=== PATIENT | male | born 1940 | race Caucasian/White ===

== ENCOUNTER 2016-08-25 15:20 | Emergency (ER) | payer MEDICARE, OTHER ==
[~2016-08-25] VITALS: Ht 175.3 cm; Wt 70.5 kg
[~2016-08-25 15:20] MED LIST: ASPI-825 PO; DOXA4TAB3 PO; ESOM40CA PO; NIAC1TBM PO; NITR0.4T27 SL; VITAMIN E
[2016-08-25] MEDS ORDERED: FENO145T PO (15:47)
[2016-08-25] MEDS ORDERED: ESCI5TAB PO (15:47)
[2016-08-25] MEDS ORDERED: DOXA4TAB2 PO (15:47)
[2016-08-25] MEDS ORDERED: ESOM40CA54 PO (15:47)
[2016-08-25] MEDS ORDERED: VIT D3 PO (15:47)
[2016-08-25] MEDS ORDERED: VIT E PO (15:47)
[2016-08-25] MEDS ORDERED: VIT B-12 PO (15:47)
[2016-08-25] MEDS ORDERED: SODIUM CHLORIDE 0.9% 1,000 ML IV ONE (16:45)
[2016-08-25] MEDS ORDERED: ACETAMINOPHEN 1000 MG/ISO-OSM 100 ML IV ONE (16:45)
[2016-08-25 16:49] LABS: BASOPHILS % (AUTO) 0.2 % (0.0-2.0); EOSINOPHILS % (AUTO) 0.7 % (1.0-6.0); HEMATOCRIT 52.3 % (41-53); HEMOGLOBIN 17.5 g/dL (13.5-17.5); LYMPHOCYTES # (AUTO) 2.2 K/uL (1.0-4.8); LYMPHOCYTES % (AUTO) 27.8 % (22.0-44.0); MEAN CORPUSCULAR HEMOGLOBIN 32.1 pg (26.0-34.0); MEAN CORPUSCULAR HGB CONC 33.5 G/dL (31.0-37.0); MEAN CORPUSCULAR VOLUME 96 fL (80-100); MONOCYTES # (AUTO) 0.6 K/uL (0.1-1.0); MONOCYTES % (AUTO) 7.7 % (2.0-9.0); NEUTROPHILS % (AUTO) 63.6 % (40.0-70.0); PLATELET COUNT (AUTO) 270 K/uL (150-450); RED BLOOD CELL COUNT(AUTO) 5.46 MIL/uL (4.50-5.90); RED CELL DISTRIBUTION WIDTH 14.2 % (11.5-14.5); WHITE BLOOD COUNT (AUTO) 7.9 K/uL (4.5-11.0)
[2016-08-25 16:56] LABS: ANION GAP 6 mmol/L (8-16); CALCIUM, TOTAL 9.5 mg/dL (8.8-10.5); CARBON DIOXIDE 29 mmol/L (22-29); CHLORIDE 103 mmol/L (98-107); CREATININE 0.85 mg/dL (0.60-1.30); GLOMERULAR FILTR. RATE CALC > 60 mL/min (>60); POTASSIUM 3.9 mmol/L (3.5-5.1); SODIUM SERUM 138 mmol/L (136-145); UREA NITROGEN, BLOOD 13 mg/dL (7-18)
[2016-08-25 17:02] LABS: ALANINE AMINOTRANSFERASE 38 U/L (12-78); ASPARTATE AMINOTRANSFERASE 26 U/L (15-37); BILIRUBIN,TOTAL 0.5 mg/dL (0.1-1.0); TOTAL PROTEIN, SERUM 7.5 g/dL (6.4-8.2)
[2016-08-25] MEDS ORDERED: SODIUM CHLORIDE 0.9% 100 ML ONE (17:03)
[2016-08-25] MEDS ORDERED: IOVERSOL 350 MG/ML 100 ML VIAL ONE (17:04)
[2016-08-25] MEDS ORDERED: KETOROLAC TROMETHAMINE 30 MG/ML VIAL IVP ONE (17:45)
[2016-08-25 17:48] LABS: APPEARANCE,URINE CLEAR (CLEAR); GLUCOSE, URINE (UA) NEGATIVE (NEGATIVE); KETONES,URINE NEGATIVE (NEGATIVE); LEUKOCYTE ESTERASE ,URINE NEGATIVE (NEGATIVE); OCCULT BLOOD,URINE NEGATIVE (NEGATIVE); PROTEIN,URINE NEGATIVE (NEGATIVE)
[2016-08-25 18:13] LABS: RBC,URINE 0-2 /HPF (0-2); WBC,URINE 0-2 /HPF (0-5)
[2016-08-25 20:18] VITALS: BP 122/74
== END 2016-08-25 20:26 | disposition home or self-care (01) ==
LOC: EMS 15:21
DX: R10.32 Left lower quadrant pain (principal); I11.9 Hypertensive heart disease without heart failure; E78.00 Pure hypercholesterolemia, unspecified
CPT/HCPCS: 36415; 75635; 80053; 81001; 83690; 85025; 96365; 96374; 99285; J0131; J7030; J7050; Q9967

== ENCOUNTER → 2024-04-05 | Outpatient (CLI) | payer MEDICARE, OTHER ==
[~2024-04-05] MED LIST changes: -ASPI-825 PO; -DOXA4TAB3 PO; +ESCI5TAB PO; -ESOM40CA PO; +ESOM40CA66 PO; +FENO145T PO; -NIAC1TBM PO; -NITR0.4T27 SL; +NITR0.4T50 SL; +VIT B-12 PO; +VIT D3 PO; +VIT E PO; -VITAMIN E; +[UNRECOGNIZED DRUG - CODE] PO
== END | disposition home or self-care (01) ==
LOC: RADMN 09:33
PROVIDERS: ATTEND Nurse Practitioner
DX: R13.10 Dysphagia, unspecified (principal)
CPT/HCPCS: 74230; 92611